=== PATIENT | female | born 1975 | race Caucasian/White ===

== ENCOUNTER → 2022-10-06 06:42 | Outpatient (CLI) | payer OTHER, SELFPAY ==
--- NOTE | 2022-10-06 06:44 | DI.ECHO.S_ITS ---
[place] [facility]---------+ [facility] +---------+ : : [address] : [address] : : : : [id number] : : : : Phone: [phone]---------+ Echocardiogram Report + + :Name: NESSA LYLE Study Date: 10/06/2022 Height: 64 in : :[facility] ReadingLocation: Weight: 165 lb : : Gender: Female BSA: 1.8 m2 : :: 1975 Age: 46 yrs BP: 121/88 mmHg: :Reason For Study: DYSPNEA, TMJ : :Ordering Physician: DENISE, : :TRISTIN Performed By: Rama Gaviria : :Referring: TRISTIN WALKER : + + Interpretation Summary The left ventricle is normal in size and wall thickness. Left ventricular systolic function appears normal without focal wall motion abnormalities. The ejection fraction is estimated to be 55-60%. Diastolic parameters suggest probable normal left ventricular diastolic function and normal filling pressures. The right ventricle is normal in size and function. The right ventricular systolic pressure is estimated to be at least 27 mmHg based on an estimated right atrial pressure of 3 mm Hg. The left atrial size is normal. Right atrial size is normal. There is no significant valvular heart disease. The aortic root is normal size. Procedure: A two-dimensional transthoracic echocardiogram with color flow and Doppler was performed. The study quality was technically good. There is no prior echocardiogram noted for this patient. The patient was in sinus rhythm with heart rates between 69-83 bpm during the exam. Left Ventricle: The left ventricle is normal in size and wall thickness. Left ventricular systolic function appears normal without focal wall motion abnormalities. The ejection fraction is estimated to be 55-60%. Diastolic parameters suggest probable normal left ventricular diastolic function and normal filling pressures. Right Ventricle: The right ventricle is normal in size and function. Atria: The left atrial size is normal. Right atrial size is normal. There is no Doppler evidence for an interatrial shunt. Mitral Valve: The mitral valve is normal in structure and function. There is trace mitral regurgitation. Aortic Valve: The aortic valve is trileaflet. The aortic valve opens well. There is no aortic valve stenosis. No aortic regurgitation is present. Tricuspid Valve: The tricuspid valve is normal in structure and function. There is trace tricuspid regurgitation. The right ventricular systolic pressure is estimated to be at least 27 mmHg based on an estimated right atrial pressure of 3 mm Hg. Pulmonic Valve: The pulmonic valve is not well seen, but is grossly normal. There is no pulmonic valvular regurgitation. There is no significant valvular heart disease. Great Vessels: The aortic root is normal size. The dimensions of the ascending aorta are normal. The IVC is of normal diameter and collapses greater than 50% with a sniff. This suggests a low right atrial pressure of 3 mm Hg. Pericardium/ Pleura There is no pericardial effusion. There is no pleural effusion. MMode/2D Measurements & Calculations LVIDd: 4.7 cm LVOT diam: 2.0 cm LVIDs: 3.3 cm Ao root diam: 2.5 cm FS: 28.3 % asc Aorta Diam: 3.0 cm IVSd: 0.74 cm Ao Arch Diam (Prox Trans): 2.3 cm LVPWd: 0.61 cm LV ramirez. diameter/BSA (cm/m^2): 2.6 LV sys. diameter/BSA (cm/m^2): 1.8 LA A2 area: 15.4 cm2 RA long axis: 4.9 cm LA A4 area: 14.4 cm2 RA area: 11.7 cm2 LA length (vol): 4.9 cm RA vol: 23.6 ml LA vol: 38.7 ml RA : 13.1 ml/m2 LA vol index: 21.4 ml/m2 IVC diam: 1.8 cm RVD1 (basal): 2.8 cm RVD2 (mid): 2.7 cm TAPSE: 2.0 cm Doppler Measurements & Calculations Ao V2 max: 119.9 cm/sec LVOT Max Chidi: 93.4 cm/sec Ao V2 mean: 86.6 cm/sec LV V1 max P.5 mmHg Ao max P.7 mmHg LV V1 VTI: 19.5 cm Ao mean P.4 mmHg YAMIL(I,D): 2.5 cm2 Ao V2 VTI: 26.0 cm YAMIL(V,D): 2.6 cm2 sev ratio: 0.75 YAMIL indexed to BSA (cm^2/m^2): 1.4 MV E max chidi: 87.4 cm/sec TR max chidi: 246.1 cm/sec MV A max chidi: 92.3 cm/sec TR max P.2 mmHg MV E/A: 0.95 PA V2 max: 98.9 cm/sec Med Peak E' Chidi: 13.3 cm/sec PA V2 mean: 67.3 cm/sec E/E' med: 6.6 PA mean P.1 mmHg Lat Peak E' Chidi: 16.2 cm/sec PA pr(Accel): 5.4 mmHg E/E' lat: 5.4 E/e' average: 6.0 MV dec time: 0.16 sec SV(LVOT): 64.0 ml Reading Physician:[id number] PM
--- NOTE | 2022-10-06 06:45 | DI.MRI.S_ITS ---
PROCEDURE: MR TMJ WO CON INDICATIONS: Other forms of dyspnea; TMJ disorder TECHNIQUE: Axial T1 spin echo, coronal and sagittal PD fast spin echo through the temporomandibular joints, in both the closed- and open-mouth positions. COMPARISON: None. FINDINGS: Image quality: Excellent. Right: Joint is normally aligned on closed and open-mouth positioning. Articular disk demonstrates normal location and morphology. No bony erosions or osteophytes. Left: Joint is normally aligned on closed and open-mouth positioning. Articular disk demonstrates normal location and morphology. No bony erosions or osteophytes. IMPRESSION: Unremarkable MRI examination of bilateral temporomandibular joints. Dictated by: Jerrod Quinones M.D. on 10/06/2022 at 10:03 Approved by: Jerrod Quinones M.D. on 10/06/2022 at 10:19
== END ==
PROVIDERS: Referring Provider Family Medicine; Visit Provider Family Medicine
DX: R06.09 Other forms of dyspnea (principal); Z86.16 Personal history of COVID-19; M26.609 Unspecified temporomandibular joint disorder, unspecified side
CPT/HCPCS: 70336; 93306

== ENCOUNTER → 2022-10-07 13:21 | Outpatient (CLI) | payer OTHER, SELFPAY ==
--- NOTE | 2022-10-12 08:38 | PM.PFT.1 ---
Pulmonary Function Test Referral & Results Date Patient Seen: 10/07/22 Requesting provider: Katelyn Cade Results: The spirometry demonstrates an FVC of 3.62 L which is 99% of predicted. The FEV1 was measured at 3.10 L which is 106% of predicted. The FEV1/FVC ratio was 86 which is 105% of predicted. Following the administration of bronchodilator there was no appreciable change to above normal numbers. Lung volumes show an SVC of 3.41 L which is 101% of predicted. The diffusing capacity was measured at 22.48 which is 92% of predicted. The maximum voluntary ventilation was normal Interpretation: This study demonstrates normal pulmonary function
== END ==
PROVIDERS: PCP Family Medicine; Referring Provider Internal Medicine Pulmonary Disease; Visit Provider Internal Medicine Pulmonary Disease
DX: R06.09 Other forms of dyspnea (principal)
CPT/HCPCS: 94060; 94726; 94729

== ENCOUNTER → 2022-10-24 15:04 | Outpatient (CLI) | payer OTHER, SELFPAY | PROVIDERS: PCP Family Medicine; Referring Provider Internal Medicine Pulmonary Disease; Visit Provider Internal Medicine Pulmonary Disease | DX: R06.09 Other forms of dyspnea (principal) | CPT/HCPCS: 93242 ==